=== PATIENT | male | born 1985 | race Caucasian/White ===

== ENCOUNTER 2018-01-23 20:13 | Inpatient (IN) | payer BC, OTHER ==
[2018-01-23] MEDS: PANTOPRAZOLE 40MG INJ (PROTONIX) (C9113) IV ×2 (09:00→22:22)
[2018-01-23] MEDS: NS 1,000 ML IV (22:21)
[2018-01-23] MEDS: ONDANSETRON 4MG/2ML VIAL (J2405) IV (22:25)
[2018-01-23] MEDS: MORPHINE 2 MG/ML 1ML SYRINGE (J2270) IV ×2 (22:25→23:49)
[2018-01-23 22:29] LABS: BASO # 0.1 10^3/uL (0.0-0.2); BASO % 0.6 % (0.0-1.0); EOS # 0.1 10^3/uL (0.0-0.50); EOS % 0.9 % (0.0-3.0); HEMATOCRIT 54.4 % (42.0-52.0); HEMOGLOBIN 19.4 g/dl (14.0-18.0); IMMATURE GRANULOCYTE % 0.4 % (0-3.0); LYMPH # 4.4 10^3/uL (1.5-4.5); LYMPH % 32.5 % (24.0-44.0); MEAN CORPUSCULAR HEMOGLOBIN 29.6 pg (27.0-33.0); MEAN CORPUSCULAR HGB CONC 35.7 g/dl (32.0-36.5); MEAN CORPUSCULAR VOLUME 83.1 fl (80.0-96.0); MONO # 1.6 10^3/uL (0.0-0.8); NEUTROPHILS # 7.2 10^3/uL (1.8-7.7); NEUTROPHILS % 53.6 % (36.0-66.0); PLATELET COUNT, AUTOMATED 372 10^3/uL (150-450); RED BLOOD COUNT 6.55 10^6/uL (4.30-6.10); RED CELL DISTRIBUTION WIDTH 12.3 % (11.5-14.5); WHITE BLOOD COUNT 13.4 10^3/uL (4.0-10.0)
[2018-01-23] MEDS ORDERED: ISOVUE-370 76% 100ML VIAL (Q9967) As Ordered (22:44)
[2018-01-23 22:45] LABS: ALBUMIN 4.6 GM/DL (3.2-5.2); ALBUMIN/GLOBULIN RATIO 1.02 (1.00-1.93); ALKALINE PHOSPHATASE 151 U/L (45-117); ALT/SGPT 104 U/L (12-78); AMYLASE 134 U/L (25-115); ANION GAP 10 MEQ/L (8-16); AST/SGOT 50 U/L (7-37); BILIRUBIN,DIRECT 0.1 MG/DL (0.0-0.2); BILIRUBIN,TOTAL 0.7 MG/DL (0.2-1.0); BLOOD UREA NITROGEN 15 MG/DL (7-18); CARBON DIOXIDE LEVEL 28 MEQ/L (21-32); CHLORIDE LEVEL 98 MEQ/L (98-107); CREATININE FOR GFR 1.04 MG/DL (0.70-1.30); GLOMERULAR FILTRATION RATE > 60.0 (>60); GLUCOSE, FASTING 259 MG/DL (70-100); LIPASE 1409 U/L (73-393); POTASSIUM SERUM 3.2 MEQ/L (3.5-5.1); SODIUM LEVEL 136 MEQ/L (136-145); TOTAL PROTEIN 9.1 GM/DL (6.4-8.2)
[2018-01-23 22:51] LABS: LACTIC ACID SEPSIS PROTOCOL 2.1 MMOL/L (0.4-2.0)
[2018-01-23 23:02] LABS: MAGNESIUM LEVEL 2.4 MG/DL (1.8-2.4)
[2018-01-23] MEDS ORDERED: PANTOPRAZOLE 40MG INJ (PROTONIX) (C9113) IV (23:45)
[2018-01-23] MEDS ORDERED: MORPHINE 4 MG/ML 1ML VIAL (J2270) IV (23:45)
[2018-01-23] MEDS: POTASSIUM CHLORIDE 10 MEQ SR TABLET PO (23:47)
[2018-01-24] MEDS: MORPHINE 2 MG/ML 1ML SYRINGE (J2270) IV (00:24)
[2018-01-24] MEDS: KCL 20MEQ in NS 1000ML 1,000 ML IV ×3 (01:30→08:27)
[2018-01-24] MEDS: KETOROLAC 30 MG/ML VIAL (J1885) IV ×3 (01:55→20:57)
[2018-01-24] MEDS: MORPHINE 4 MG/ML 1ML VIAL (J2270) IV ×5 (02:42→17:42)
[2018-01-24 05:55] LABS: HEMATOCRIT 44.7 % (42.0-52.0); MEAN CORPUSCULAR HEMOGLOBIN 29.8 pg (27.0-33.0); MEAN CORPUSCULAR HGB CONC 35.3 g/dl (32.0-36.5); MEAN CORPUSCULAR VOLUME 84.2 fl (80.0-96.0); PLATELET COUNT, AUTOMATED 254 10^3/uL (150-450); RED BLOOD COUNT 5.31 10^6/uL (4.30-6.10); RED CELL DISTRIBUTION WIDTH 12.3 % (11.5-14.5); WHITE BLOOD COUNT 10.5 10^3/uL (4.0-10.0)
[2018-01-24 06:00] LABS: ADD MANUAL DIFFER YES; DIFF SLIDE NUMBER 93; HEMOGLOBIN 15.8 g/dl (14.0-18.0); POSITIVE DIFF POS FLAG
[2018-01-24 06:14] LABS: ALBUMIN 3.3 GM/DL (3.2-5.2); ALBUMIN/GLOBULIN RATIO 1.03 (1.00-1.93); ALKALINE PHOSPHATASE 100 U/L (45-117); ALT/SGPT 82 U/L (12-78); ANION GAP 8 MEQ/L (8-16); AST/SGOT 47 U/L (7-37); BILIRUBIN,TOTAL 0.6 MG/DL (0.2-1.0); BLOOD UREA NITROGEN 14 MG/DL (7-18); CALCIUM LEVEL 7.8 MG/DL (8.5-10.1); CARBON DIOXIDE LEVEL 26 MEQ/L (21-32); CHLORIDE LEVEL 107 MEQ/L (98-107); CREATININE FOR GFR 0.83 MG/DL (0.70-1.30); GLOMERULAR FILTRATION RATE > 60.0 (>60); GLUCOSE, FASTING 176 MG/DL (70-100); LIPASE 298 U/L (73-393); MAGNESIUM LEVEL 2.1 MG/DL (1.8-2.4); POTASSIUM SERUM 3.9 MEQ/L (3.5-5.1); SODIUM LEVEL 141 MEQ/L (136-145); TOTAL PROTEIN 6.5 GM/DL (6.4-8.2)
[2018-01-24 07:45] LABS: ATYPICAL LYMPH 5 % (0-5); EOSINOPHILS 1 % (0-5); LYMPHOCYTES 36 % (16-52); MONOCYTES 8 % (0-8); NEUTROPHILS 50 % (35-75)
[2018-01-24 07:46] LABS: PLATELET ESTIMATE NORMAL (NORMAL)
[2018-01-24] MEDS: PANTOPRAZOLE 40MG INJ (PROTONIX) (C9113) IV (08:29)
[2018-01-24] MEDS: amLODIPine 10 MG TAB PO (08:29)
[2018-01-24] MEDS: ENOXAPARIN 40 MG/0.4 ML SYRINGE (J1650) SC (08:29)
[2018-01-24] MEDS ORDERED: DEXTROSE 50% 50 ML SYRINGE IV (11:45)
[2018-01-24] MEDS ORDERED: GLUCAGON FOR INJ 1 MG VIAL (J1610) SC (11:45)
[2018-01-24] MEDS ORDERED: GLUCOSE 4 GM CHEW TABLET PO (11:45)
[2018-01-24] MEDS: NS 1,000 ML IV ×2 (12:06→20:56)
[2018-01-24 12:10] LABS: HEPATITIS B SURFACE ANTIGEN NEGATIVE (NEGATIVE)
[2018-01-24 12:31] LABS: CHOLESTEROL LEVEL 172 MG/DL (<200); CHOLESTEROL RISK RATIO 7.818 (<5); HDL CHOLESTEROL 22 MG/DL (>40); NON-HDL-C 150 MG/DL; TRIGLYCERIDES LEVEL 215 MG/DL (<150)
[2018-01-24 12:33] LABS: HEPATITIS C VIRUS ABY INDEX 0.1 INDEX (<0.8)
[2018-01-24 12:33] LABS: HEPATITIS B CORE ANTIBODY IGM NEGATIVE (NEGATIVE)
[2018-01-24 12:34] LABS: HEPATITIS A ANTIBODY IGM NEGATIVE (NEGATIVE)
[2018-01-24] MEDS: HumaLOG INSULIN (NovoLOG) PER UNIT SC ×2 (12:56→17:39)
[2018-01-24 13:02] LABS: BEDSIDE GLUCOSE 233 MG/DL (70-105)
[2018-01-24 13:13] LABS: ESTIMATED AVERAGE GLUCOSE 309 MG/DL (60-110); HEMOGLOBIN A1c 12.4 %
[2018-01-24 17:22] LABS: BEDSIDE GLUCOSE 214 MG/DL (70-105)
[2018-01-24] MEDS: ONDANSETRON 4MG/2ML VIAL (J2405) IV (17:40)
[2018-01-24 21:26] LABS: BEDSIDE GLUCOSE 167 MG/DL (70-105)
[2018-01-25 00:01] LABS: BEDSIDE GLUCOSE 146 MG/DL (70-105)
[2018-01-25] MEDS: HumaLOG INSULIN (NovoLOG) PER UNIT SC ×5 (00:06→20:27)
[2018-01-25] MEDS: MORPHINE 4 MG/ML 1ML VIAL (J2270) IV ×3 (00:09→14:08)
[2018-01-25 05:35] LABS: BASO # 0.1 10^3/uL (0.0-0.2); BASO % 0.7 % (0.0-1.0); EOS # 0.2 10^3/uL (0.0-0.50); EOS % 2.4 % (0.0-3.0); HEMATOCRIT 48.3 % (42.0-52.0); HEMOGLOBIN 17.1 g/dl (14.0-18.0); IMMATURE GRANULOCYTE % 0.3 % (0-3.0); LYMPH # 3.8 10^3/uL (1.5-4.5); LYMPH % 42.6 % (24.0-44.0); MEAN CORPUSCULAR HEMOGLOBIN 29.6 pg (27.0-33.0); MEAN CORPUSCULAR HGB CONC 35.4 g/dl (32.0-36.5); MEAN CORPUSCULAR VOLUME 83.7 fl (80.0-96.0); MONO % 10.6 % (0.0-5.0); NEUTROPHILS # 3.9 10^3/uL (1.8-7.7); NEUTROPHILS % 43.4 % (36.0-66.0); PLATELET COUNT, AUTOMATED 259 10^3/uL (150-450); RED BLOOD COUNT 5.77 10^6/uL (4.30-6.10); RED CELL DISTRIBUTION WIDTH 12.4 % (11.5-14.5); WHITE BLOOD COUNT 8.9 10^3/uL (4.0-10.0)
[2018-01-25] MEDS: NS 1,000 ML IV ×2 (06:12→11:45)
[2018-01-25 06:18] LABS: ALBUMIN 3.4 GM/DL (3.2-5.2); ALBUMIN/GLOBULIN RATIO 0.97 (1.00-1.93); ALKALINE PHOSPHATASE 114 U/L (45-117); ALT/SGPT 103 U/L (12-78); ANION GAP 7 MEQ/L (8-16); AST/SGOT 52 U/L (7-37); BILIRUBIN,TOTAL 0.8 MG/DL (0.2-1.0); BLOOD UREA NITROGEN 9 MG/DL (7-18); CARBON DIOXIDE LEVEL 28 MEQ/L (21-32); CHLORIDE LEVEL 103 MEQ/L (98-107); CREATININE FOR GFR 0.75 MG/DL (0.70-1.30); GLOMERULAR FILTRATION RATE > 60.0 (>60); GLUCOSE, FASTING 160 MG/DL (70-100); LIPASE 421 U/L (73-393); MAGNESIUM LEVEL 2.2 MG/DL (1.8-2.4); POTASSIUM SERUM 3.5 MEQ/L (3.5-5.1); SODIUM LEVEL 138 MEQ/L (136-145); TOTAL PROTEIN 6.9 GM/DL (6.4-8.2)
[2018-01-25 08:03] LABS: BEDSIDE GLUCOSE 151 MG/DL (70-105)
[2018-01-25 08:13] LABS: FERRITIN 461 NG/ML (26-388)
[2018-01-25] MEDS ORDERED: DEXTROSE 50% 50 ML SYRINGE IV (08:45)
[2018-01-25] MEDS ORDERED: GLUCAGON FOR INJ 1 MG VIAL (J1610) SC (08:45)
[2018-01-25] MEDS ORDERED: GLUCOSE 4 GM CHEW TABLET PO (08:45)
[2018-01-25] MEDS: PANTOPRAZOLE 40MG INJ (PROTONIX) (C9113) IV (08:51)
[2018-01-25] MEDS: amLODIPine 10 MG TAB PO (08:52)
[2018-01-25] MEDS: ENOXAPARIN 40 MG/0.4 ML SYRINGE (J1650) SC (08:52)
[2018-01-25] MEDS: PERCOCET 5MG/325MG TAB PO ×2 (08:53→17:22)
[2018-01-25 12:16] LABS: BEDSIDE GLUCOSE 188 MG/DL (70-105)
[2018-01-25 16:52] LABS: BEDSIDE GLUCOSE 207 MG/DL (70-105)
[2018-01-25 20:32] LABS: BEDSIDE GLUCOSE 246 MG/DL (70-105)
[2018-01-26] MEDS: PERCOCET 5MG/325MG TAB PO ×2 (03:58→10:14)
[2018-01-26 06:38] LABS: BASO # 0.1 10^3/uL (0.0-0.2); BASO % 0.7 % (0.0-1.0); EOS # 0.2 10^3/uL (0.0-0.50); EOS % 1.9 % (0.0-3.0); HEMATOCRIT 48.9 % (42.0-52.0); HEMOGLOBIN 17.3 g/dl (14.0-18.0); IMMATURE GRANULOCYTE % 0.3 % (0-3.0); LYMPH # 3.5 10^3/uL (1.5-4.5); LYMPH % 39.6 % (24.0-44.0); MEAN CORPUSCULAR HEMOGLOBIN 29.8 pg (27.0-33.0); MEAN CORPUSCULAR HGB CONC 35.4 g/dl (32.0-36.5); MEAN CORPUSCULAR VOLUME 84.2 fl (80.0-96.0); MONO # 0.8 10^3/uL (0.0-0.8); MONO % 9.3 % (0.0-5.0); NEUTROPHILS # 4.2 10^3/uL (1.8-7.7); NEUTROPHILS % 48.2 % (36.0-66.0); PLATELET COUNT, AUTOMATED 266 10^3/uL (150-450); RED BLOOD COUNT 5.81 10^6/uL (4.30-6.10); RED CELL DISTRIBUTION WIDTH 12.2 % (11.5-14.5); WHITE BLOOD COUNT 8.8 10^3/uL (4.0-10.0)
[2018-01-26 07:00] LABS: ALBUMIN 3.5 GM/DL (3.2-5.2); ALBUMIN/GLOBULIN RATIO 0.95 (1.00-1.93); ALKALINE PHOSPHATASE 124 U/L (45-117); ALT/SGPT 93 U/L (12-78); ANION GAP 5 MEQ/L (8-16); AST/SGOT 33 U/L (7-37); BILIRUBIN,TOTAL 0.7 MG/DL (0.2-1.0); BLOOD UREA NITROGEN 15 MG/DL (7-18); CALCIUM LEVEL 8.8 MG/DL (8.5-10.1); CARBON DIOXIDE LEVEL 31 MEQ/L (21-32); CHLORIDE LEVEL 100 MEQ/L (98-107); CREATININE FOR GFR 0.81 MG/DL (0.70-1.30); GLOMERULAR FILTRATION RATE > 60.0 (>60); GLUCOSE, FASTING 219 MG/DL (70-100); LIPASE 309 U/L (73-393); MAGNESIUM LEVEL 2.5 MG/DL (1.8-2.4); SODIUM LEVEL 136 MEQ/L (136-145); TOTAL PROTEIN 7.2 GM/DL (6.4-8.2)
[2018-01-26] MEDS: HumaLOG INSULIN (NovoLOG) PER UNIT SC (08:52)
[2018-01-26] MEDS: PANTOPRAZOLE 40MG INJ (PROTONIX) (C9113) IV (08:52)
[2018-01-26] MEDS: ENOXAPARIN 40 MG/0.4 ML SYRINGE (J1650) SC (08:54)
[2018-01-26] MEDS: amLODIPine 10 MG TAB PO (08:55)
== END 2018-01-26 11:50 | disposition home or self-care (01) | DRG 282 ==
LOC: M MSPAV 01-24 00:34 → M ED 20:13 → M ED INP 23:35
DX: K85.90 Acute pancreatitis without necrosis or infection, unspecified (principal); E11.65 Type 2 diabetes mellitus with hyperglycemia; K76.0 Fatty (change of) liver, not elsewhere classified; I10 Essential (primary) hypertension; Z91.19 Patient's noncompliance with other medical treatment and regimen; Z88.5 Allergy status to narcotic agent; E87.6 Hypokalemia

== ENCOUNTER → 2018-02-02 | Outpatient (REF) | payer OTHER ==
[2018-02-02 16:17] LABS: ALBUMIN 3.8 GM/DL (3.2-5.2); ALKALINE PHOSPHATASE 144 U/L (45-117); ALT/SGPT 63 U/L (12-78); AST/SGOT 25 U/L (7-37); BILIRUBIN,DIRECT < 0.1 MG/DL (0.0-0.2); BILIRUBIN,TOTAL 0.4 MG/DL (0.2-1.0); FERRITIN 470 NG/ML (26-388); IRON (FE) 154 UG/DL (65-175); TOTAL PROTEIN 7.6 GM/DL (6.4-8.2)
[2018-02-04 08:06] LABS: TRANSFERRIN 282 mg/dL (200-370)
== END ==
LOC: M SFHCPLAZ 12:46
DX: R74.0 Nonspecific elevation of levels of transaminase and lactic acid dehydrogenase [LDH] (principal)

== ENCOUNTER → 2018-02-05 | Outpatient (CLI) | payer BC, OTHER | LOC: M WUC 12:44 | DX: M54.5 Low back pain (principal) | CPT/HCPCS: 72110 ==

== ENCOUNTER → 2018-05-26 | Outpatient (REF) | payer OTHER ==
[2018-05-26 17:25] LABS: HEMATOCRIT 45.9 % (42.0-52.0); MEAN CORPUSCULAR HGB CONC 34.9 g/dl (32.0-36.5); PLATELET COUNT, AUTOMATED 333 10^3/uL (150-450); RED BLOOD COUNT 5.34 10^6/uL (4.30-6.10)
[2018-05-26 17:32] LABS: ALBUMIN 4.5 GM/DL (3.2-5.2); ALBUMIN/GLOBULIN RATIO 1.15 (1.00-1.93); ALKALINE PHOSPHATASE 101 U/L (45-117); ALT/SGPT 40 U/L (12-78); ANION GAP 9 MEQ/L (8-16); AST/SGOT 28 U/L (7-37); BILIRUBIN,TOTAL 0.4 MG/DL (0.2-1.0); BLOOD UREA NITROGEN 19 MG/DL (7-18); CALCIUM LEVEL 9.7 MG/DL (8.5-10.1); CARBON DIOXIDE LEVEL 30 MEQ/L (21-32); CHLORIDE LEVEL 103 MEQ/L (98-107); CREATININE FOR GFR 0.98 MG/DL (0.70-1.30); GLOMERULAR FILTRATION RATE > 60.0 (>60); GLUCOSE, FASTING 118 MG/DL (70-100); POTASSIUM SERUM 3.8 MEQ/L (3.5-5.1); SODIUM LEVEL 142 MEQ/L (136-145); TOTAL PROTEIN 8.4 GM/DL (6.4-8.2)
[2018-05-26 17:36] LABS: ADD MANUAL DIFFER YES; DIFF SLIDE NUMBER 375; POSITIVE DIFF POS FLAG; WHITE BLOOD COUNT 14.3 10^3/uL (4.0-10.0)
[2018-05-26 17:41] LABS: COLLAGEN EPINEPHRINE 158 SECONDS (74-162)
[2018-05-26 17:47] LABS: PARTIAL THROMBOPLASTIN TIME 29.3 SECONDS (25.4-37.6); PROTHROMBIN TIME 13.3 SECONDS (12.1-14.4)
[2018-05-26 21:32] LABS: ATYPICAL LYMPH 1 % (0-5); LYMPHOCYTES 40 % (16-52); MONOCYTES 7 % (0-8); NEUTROPHILS 52 % (35-75)
[2018-05-26 21:34] LABS: PLATELET ESTIMATE NORMAL (NORMAL)
== END ==
LOC: M LABDRAWP 16:58
DX: Z01.818 Encounter for other preprocedural examination (principal)

== ENCOUNTER → 2018-05-27 | Outpatient (CLI) | payer BC, OTHER | LOC: M WUC 11:08 | DX: Z01.818 Encounter for other preprocedural examination (principal); M54.5 Low back pain | CPT/HCPCS: 71046 ==

== ENCOUNTER 2018-05-31 06:33 | Day surgery (SDC) | payer BC, OTHER ==
[2018-05-31] MEDS ORDERED: ROCURONIUM BROMIDE 50 MG/5 ML VIAL As Ordered ×2 (06:46→10:10)
[2018-05-31] MEDS ORDERED: LIDOCAINE 2% INJ 100 MG/5 ML SDV (FOR ANES.) As Ordered (06:46)
[2018-05-31] MEDS ORDERED: PROPOFOL 200 MG/20 ML VIAL As Ordered ×2 (06:46→06:48)
[2018-05-31] MEDS ORDERED: ONDANSETRON 4MG/2ML VIAL (J2405) As Ordered (06:47)
[2018-05-31] MEDS ORDERED: dexameTHASONE 4 MG/ML 1ML VIAL (J1100) As Ordered (06:47)
[2018-05-31] MEDS: LR 1,000 ML IV ×2 (07:23→14:35)
[2018-05-31 07:34] LABS: BEDSIDE GLUCOSE 222 MG/DL (70-105)
[2018-05-31] MEDS ORDERED: MIDAZOLAM INJ 2 MG/2 ML VIAL (J2250) As Ordered (08:08)
[2018-05-31] MEDS ORDERED: fentaNYL 250 MCG/5 ML INJECTION (J3010) As Ordered (08:08)
[2018-05-31] MEDS: BACITRACIN PWD 50,000 UNITS VIAL As Ordered ×3 (10:21→10:24)
[2018-05-31] MEDS: THROMBIN SOLN 20,000 UNITS KIT As Ordered (10:22)
[2018-05-31] MEDS ORDERED: fentaNYL 100 MCG/2 ML INJECTION (J3010) As Ordered (10:39)
[2018-05-31] MEDS ORDERED: HYDROmorphone HCL 2 MG/ML 1ML VIAL (J1170) As Ordered (11:36)
[2018-05-31] MEDS ORDERED: GLYCOPYRROLATE INJ 0.2 MG/ML 2 ML VIAL As Ordered ×2 (11:39)
[2018-05-31] MEDS ORDERED: NEOSTIGMINE 10 MG/10 ML VIAL (J2710) As Ordered (11:39)
[2018-05-31] MEDS: methylPREDNISolone SUSP 40 MG/ML (DEPO-medrol) VIAL (J1030) As Ordered (11:55)
[2018-05-31] MEDS: HYDROMORPHONE HCL 0.5 MG/ 0.5 ML SYRINGE (J1170 PER 1) IV ×6 (12:57→14:35)
[2018-05-31] MEDS ORDERED: ONDANSETRON 4MG/2ML VIAL (J2405) IV ×2 (13:00→14:45)
[2018-05-31] MEDS: PERCOCET 5MG/325MG TAB PO ×3 (13:15→19:02)
[2018-05-31] MEDS: fentaNYL 100 MCG/2 ML INJECTION (J3010) IV ×5 (13:42→14:35)
[2018-05-31] MEDS: LIDOCAINE 1% MDV 20ML VIAL SQ (14:35)
[2018-05-31] MEDS ORDERED: NORCO, ANEXSIA 5/325MG TABLET (HYDROcodone/ACETAMINOPHEN) PO (14:45)
[2018-05-31] MEDS: ceFAZolin SOD 1 GM in D5W MINI-BAG PLUS 50 ML IV ×2 (15:44→22:18)
[2018-05-31] MEDS: KCL 20MEQ IN D5/0.45NS 1000ML 1,000 ML IV ×2 (15:44→23:05)
[2018-05-31] MEDS: ACETAMINOPHEN TAB 650MG DOSE (2X325MG) PO (17:46)
[2018-05-31] MEDS: MORPHINE 4 MG/ML 1ML VIAL/SYRINGE (J2270) IV ×2 (17:46→22:19)
[2018-05-31 18:32] LABS: BEDSIDE GLUCOSE 272 MG/DL (70-105)
[2018-05-31] MEDS: metFORMIN (GLUCOPHAGE) 1000 MG TABLET PO (20:54)
[2018-05-31] MEDS ORDERED: GLUCAGON FOR INJ 1 MG VIAL (J1610) SC (21:30)
[2018-05-31] MEDS ORDERED: DEXTROSE 50% 50 ML SYRINGE IV (21:30)
[2018-05-31] MEDS ORDERED: GLUCOSE 4 GM CHEW TABLET PO (21:30)
[2018-05-31] MEDS: amLODIPine 10 MG TAB PO (22:19)
[2018-05-31] MEDS: HumaLOG INSULIN (NovoLOG) PER UNIT SC (22:30)
[2018-05-31 23:02] LABS: BEDSIDE GLUCOSE 250 MG/DL (70-105)
[2018-06-01] MEDS: PERCOCET 5MG/325MG TAB PO ×3 (00:31→08:41)
[2018-06-01] MEDS: MORPHINE 4 MG/ML 1ML VIAL/SYRINGE (J2270) IV ×3 (02:19→10:57)
[2018-06-01] MEDS: ceFAZolin SOD 1 GM in D5W MINI-BAG PLUS 50 ML IV (04:42)
[2018-06-01] MEDS: KCL 20MEQ IN D5/0.45NS 1000ML 1,000 ML IV (07:25)
[2018-06-01] MEDS: HumaLOG INSULIN (NovoLOG) PER UNIT SC (07:30)
[2018-06-01 08:00] LABS: HEMATOCRIT 39.4 % (42.0-52.0); HEMOGLOBIN 13.8 g/dl (13.5-17.5); MEAN CORPUSCULAR HEMOGLOBIN 30.2 pg (27.0-33.0); MEAN CORPUSCULAR VOLUME 86.2 fl (80.0-96.0); PLATELET COUNT, AUTOMATED 241 10^3/uL (150-450); RED BLOOD COUNT 4.57 10^6/uL (4.30-6.10); RED CELL DISTRIBUTION WIDTH 11.9 % (11.5-14.5); WHITE BLOOD COUNT 16.6 10^3/uL (4.0-10.0)
[2018-06-01] MEDS: metFORMIN (GLUCOPHAGE) 1000 MG TABLET PO (08:00)
[2018-06-01 08:23] LABS: ALBUMIN 3.3 GM/DL (3.2-5.2); ALBUMIN/GLOBULIN RATIO 0.94 (1.00-1.93); ALKALINE PHOSPHATASE 85 U/L (45-117); ALT/SGPT 30 U/L (12-78); ANION GAP 11 MEQ/L (8-16); AST/SGOT 17 U/L (7-37); BILIRUBIN,TOTAL 0.3 MG/DL (0.2-1.0); BLOOD UREA NITROGEN 9 MG/DL (7-18); CALCIUM LEVEL 8.2 MG/DL (8.5-10.1); CARBON DIOXIDE LEVEL 26 MEQ/L (21-32); CHLORIDE LEVEL 102 MEQ/L (98-107); CREATININE FOR GFR 0.82 MG/DL (0.70-1.30); GLOMERULAR FILTRATION RATE > 60.0 (>60); GLUCOSE, FASTING 243 MG/DL (70-100); MAGNESIUM LEVEL 2.2 MG/DL (1.8-2.4); POTASSIUM SERUM 4.1 MEQ/L (3.5-5.1); SODIUM LEVEL 139 MEQ/L (136-145); TOTAL PROTEIN 6.8 GM/DL (6.4-8.2)
[2018-06-01] MEDS: LOSARTAN 50 MG TAB PO (08:39)
[2018-06-01] MEDS: amLODIPine 10 MG TAB PO (08:39)
[2018-06-01] MEDS: glipiZIDE (GLUCOTROL) 5 MG TAB PO (08:40)
[2018-06-01] MEDS: SENNA 8.6 MG TAB (SENOKOT) PO (09:00)
[2018-06-01 09:10] LABS: ESTIMATED AVERAGE GLUCOSE 177 MG/DL (60-110); HEMOGLOBIN A1c 7.8 %
[2018-06-01 11:22] LABS: BEDSIDE GLUCOSE 304 MG/DL (70-105)
== END 2018-06-01 12:15 | disposition home or self-care (01) ==
LOC: M SDC 06:33 → M PED 14:20
DX: M47.16 Other spondylosis with myelopathy, lumbar region (principal); M47.26 Other spondylosis with radiculopathy, lumbar region; M46.1 Sacroiliitis, not elsewhere classified; M48.062 Spinal stenosis, lumbar region with neurogenic claudication; M54.32 Sciatica, left side; I10 Essential (primary) hypertension; E11.65 Type 2 diabetes mellitus with hyperglycemia; K76.0 Fatty (change of) liver, not elsewhere classified; Q80.9 Congenital ichthyosis, unspecified; Z88.5 Allergy status to narcotic agent; Z88.8 Allergy status to other drugs, medicaments and biological substances; Z79.899 Other long term (current) drug therapy; Z79.84 Long term (current) use of oral hypoglycemic drugs; Z87.442 Personal history of urinary calculi; Z87.19 Personal history of other diseases of the digestive system
CPT/HCPCS: 63030

== ENCOUNTER → 2018-06-16 | Outpatient (REF) | payer OTHER ==
[2018-06-16 12:48] LABS: ALBUMIN 3.9 GM/DL (3.2-5.2); ALBUMIN/GLOBULIN RATIO 1.08 (1.00-1.93); ALKALINE PHOSPHATASE 104 U/L (45-117); ALT/SGPT 47 U/L (12-78); AST/SGOT 25 U/L (7-37); BILIRUBIN,DIRECT < 0.1 MG/DL (0.0-0.2); BILIRUBIN,TOTAL 0.4 MG/DL (0.2-1.0); FERRITIN 378 NG/ML (26-388); IRON (FE) 104 UG/DL (65-175); PERCENT SATURATION 26.5 % (19.7-50.0); TOTAL IRON BINDING CAPACITY 393 UG/DL (250-450); TOTAL PROTEIN 7.5 GM/DL (6.4-8.2)
[2018-06-16 13:28] LABS: ESTIMATED AVERAGE GLUCOSE 180 MG/DL (60-110); HEMOGLOBIN A1c 7.9 %
[2018-06-16 16:16] LABS: MAU/CREAT RATIO 41.6 MCG/MG (0.0-30.0)
[2018-06-17 08:13] LABS: TRANSFERRIN 317 mg/dL (200-370)
== END ==
LOC: M SFHCPLAZ 08:06
DX: R74.0 Nonspecific elevation of levels of transaminase and lactic acid dehydrogenase [LDH] (principal); E11.65 Type 2 diabetes mellitus with hyperglycemia

== ENCOUNTER → 2018-07-29 | Outpatient (CLI) | payer BC, OTHER | LOC: M WUC 15:03 | DX: M96.1 Postlaminectomy syndrome, not elsewhere classified (principal) | CPT/HCPCS: 72100 ==

== ENCOUNTER → 2018-08-01 | Outpatient (CLI) | payer BC, OTHER ==
[2018-08-01 20:03] LABS: CREATININE FOR GFR 1.09 MG/DL (0.70-1.30); GLOMERULAR FILTRATION RATE > 60.0 (>60)
[2018-08-01 20:03] LABS: BLOOD UREA NITROGEN 14 MG/DL (7-18)
== END ==
LOC: M WUC 17:11
DX: Z01.818 Encounter for other preprocedural examination (principal)
CPT/HCPCS: 82565

== ENCOUNTER → 2018-12-12 | Outpatient (REF) | payer BC ==
[~2018-12-12] MED LIST: AMLO10TA5 PO; CYCL10TA; D-CA1KIT XX; GABA-843; GLIP5TAB20; HYDR-3713; LOSA100T50; METF10004 PO; OMEP40CA2 PO; OXYC1TAB23 PO; PERC7.5T11 PO
[2018-12-12 12:23] LABS: HEMOGLOBIN A1c 11.7 %
[2018-12-12 12:32] LABS: CREATININE, URINE 98.1 MG/DL; MALB URINE SIEMENS 41.4 MG/L; MAU/CREAT RATIO 42.2 MCG/MG (0.0-30.0)
[2018-12-12 12:52] LABS: BLOOD UREA NITROGEN 14 MG/DL (7-18); CARBON DIOXIDE LEVEL 29 MEQ/L (21-32); CHLORIDE LEVEL 97 MEQ/L (98-107); CREATININE FOR GFR 0.77 MG/DL (0.70-1.30); GLOMERULAR FILTRATION RATE > 60.0 (>60); GLUCOSE, FASTING 347 MG/DL (70-100); POTASSIUM SERUM 5.1 MEQ/L (3.5-5.1); SODIUM LEVEL 134 MEQ/L (136-145)
== END ==
LOC: M SFHCPLAZ 09:23
PROVIDERS: ATTEND Family Medicine
DX: E11.65 Type 2 diabetes mellitus with hyperglycemia (principal)

== ENCOUNTER → 2018-12-15 | Outpatient (REF) | payer BC | LOC: M SFHCPLAZ 10:14 | PROVIDERS: ATTEND Family Medicine | DX: I10 Essential (primary) hypertension (principal) ==

== ENCOUNTER 2019-01-18 11:32 | Emergency (ER) | payer BC, OTHER ==
[~2019-01-18] VITALS: Ht 180.3 cm; Wt 90.9 kg
[2019-01-18] MEDS ORDERED: PREG50CA (11:52)
[2019-01-18] MEDS ORDERED: MORPHINE 4 MG/ML 1ML VIAL/SYRINGE (J2270) IV ONE (12:00)
[2019-01-18] MEDS ORDERED: NS 1,000 ML IV ONE (12:00)
[2019-01-18] MEDS ORDERED: ONDANSETRON 4MG/2ML VIAL (J2405) IV ONE (12:00)
[2019-01-18 12:22] LABS: BASO % 0.3 % (0.0-1.0); EOS % 0.2 % (0.0-3.0); HEMATOCRIT 45.1 % (42.0-52.0); HEMOGLOBIN 16.2 g/dl (13.5-17.5); LYMPH # 1.9 10^3/uL (1.5-4.5); LYMPH % 15.7 % (24.0-44.0); MEAN CORPUSCULAR HEMOGLOBIN 29.4 pg (27.0-33.0); MEAN CORPUSCULAR HGB CONC 35.9 g/dl (32.0-36.5); MEAN CORPUSCULAR VOLUME 81.9 fl (80.0-96.0); MONO # 0.4 10^3/uL (0.0-0.8); MONO % 3.7 % (0.0-5.0); NEUTROPHILS # 9.4 10^3/uL (1.8-7.7); NEUTROPHILS % 79.7 % (36.0-66.0); PLATELET COUNT, AUTOMATED 288 10^3/uL (150-450); RED BLOOD COUNT 5.51 10^6/uL (4.30-6.10); WHITE BLOOD COUNT 11.9 10^3/uL (4.0-10.0)
[2019-01-18 12:55] LABS: ALBUMIN 3.9 GM/DL (3.2-5.2); ALT/SGPT 70 U/L (12-78); AMYLASE 43 U/L (25-115); BILIRUBIN,DIRECT 0.1 MG/DL (0.0-0.2); BILIRUBIN,TOTAL 0.7 MG/DL (0.2-1.0); BLOOD UREA NITROGEN 23 MG/DL (7-18); CALCIUM LEVEL 8.6 MG/DL (8.5-10.1); CARBON DIOXIDE LEVEL 25 MEQ/L (21-32); CHLORIDE LEVEL 97 MEQ/L (98-107); CREATININE FOR GFR 0.85 MG/DL (0.70-1.30); GLOMERULAR FILTRATION RATE > 60.0 (>60); GLUCOSE, FASTING 309 MG/DL (70-100); LIPASE 220 U/L (73-393); POTASSIUM SERUM 3.2 MEQ/L (3.5-5.1); SODIUM LEVEL 134 MEQ/L (136-145); TOTAL PROTEIN 7.6 GM/DL (6.4-8.2)
[2019-01-18] MEDS ORDERED: METOCLOPRAMIDE INJ 10MG/2ML VIAL (J2765) IV ONE (13:15)
[2019-01-18] MEDS ORDERED: ISOVUE-370 76% 100ML VIAL (Q9967) As Ordered ONE (13:23)
[2019-01-18] MEDS ORDERED: KETOROLAC 30 MG/ML VIAL (J1885) IV ONE (13:45)
[2019-01-18] MEDS ORDERED: ONDA8TAB8 PO (14:53)
[2019-01-18] MEDS ORDERED: HumuLIN R (REGULAR) INSULIN (NovoLIN R) **100U/ML** PER UNIT IV ONE (15:00)
[2019-01-18 15:02] VITALS: BP 150/98
[2019-01-18] MEDS ORDERED: DICY20TA11 PO (15:03)
--- NOTE | 2019-01-18 15:18 | REP ---
CT ABDOMEN AND PELVIS WITH IV CONTRAST: TECHNIQUE: Axial contrast enhanced images from the lung bases to the pubic symphysis using 100 mL Isovue 370 intravenous contrast material with multiplanar reformations. The visualized lung bases are clear. There appears to be fatty infiltration of the liver. Otherwise liver demonstrates no mass. Gallbladder is grossly unremarkable. Spleen, adrenals, pancreas and kidneys are unremarkable. There is no abdominal aortic aneurysm. There is no adenopathy. There is no free air or free fluid. No bowel wall thickening is seen. There is no evidence of appendicitis. There is no pelvic mass. Urinary bladder is unremarkable. IMPRESSION: No acute abnormality is detected. No evidence of appendicitis, free air, or free fluid. No bowel wall inflammation. There appears to be fatty infiltration of the liver. Electronically Signed by Jeff Hernandez MD 01/18/2019 11:37 P
== END 2019-01-18 15:13 | disposition home or self-care (01) ==
LOC: M ED 11:32
DX: R10.9 Unspecified abdominal pain (principal); R11.2 Nausea with vomiting, unspecified; R19.7 Diarrhea, unspecified; Z79.899 Other long term (current) drug therapy; Z88.5 Allergy status to narcotic agent
CPT/HCPCS: 74177; 80048; 80076; 81001; 82150; 83690; 85025; 96361; 96374; 96375; 99284; J1885; J2270; J2405; J2765; Q9967

== ENCOUNTER → 2020-10-15 | Outpatient (REF) | payer BC ==
[~2020-10-15] MED LIST changes: -AMLO10TA5 PO; +AMLO1TAB25 PO; +CYCL-707; -CYCL10TA; +DICY20TA11 PO; -OMEP40CA2 PO; +OMEP40CA97 PO; +ONDA8TAB8 PO; +PREG50CA
[2020-10-15 18:06] LABS: HEMOGLOBIN A1c 12.1 %
[2020-10-15 18:23] LABS: BLOOD UREA NITROGEN 21 MG/DL (7-18); CALCIUM LEVEL 9.3 MG/DL (8.5-10.1); CARBON DIOXIDE LEVEL 31 MEQ/L (21-32); CHLORIDE LEVEL 99 MEQ/L (98-107); CHOLESTEROL LEVEL 153 MG/DL (<200); CREATININE FOR GFR 0.93 MG/DL (0.70-1.30); GLOMERULAR FILTRATION RATE > 60.0 (>60); GLUCOSE, FASTING 300 MG/DL (70-100); HDL CHOLESTEROL 34 MG/DL (>40); LDL CHOLESTEROL 65 MG/DL (<100); NON-HDL-C 119 MG/DL; POTASSIUM SERUM 4.5 MEQ/L (3.5-5.1); SODIUM LEVEL 136 MEQ/L (136-145); TRIGLYCERIDES LEVEL 272 MG/DL (<150)
[2020-10-15 18:49] LABS: CREATININE, URINE 76.8 MG/DL; MAU/CREAT RATIO 179.6 MCG/MG (0.0-30.0)
== END ==
LOC: M SFHCPLAZ 14:56
PROVIDERS: ATTEND Family Medicine
DX: E11.65 Type 2 diabetes mellitus with hyperglycemia (principal)

== ENCOUNTER → 2021-08-14 | Outpatient (CLI) | payer BC, OTHER ==
[~2021-08-14] MED LIST changes: +GABA-282; -GABA-843; +OMEP40CA4 PO; -OMEP40CA97 PO
[2021-08-14 15:39] LABS: HEMATOCRIT 50.6 % (42.0-52.0); HEMOGLOBIN 17.6 g/dl (13.5-17.5); MEAN CORPUSCULAR HEMOGLOBIN 30.3 pg (27.0-33.0); MEAN CORPUSCULAR HGB CONC 34.8 g/dl (32.0-36.5); MEAN CORPUSCULAR VOLUME 87.1 fl (80.0-96.0); PLATELET COUNT, AUTOMATED 257 10^3/uL (150-450); RED BLOOD COUNT 5.81 10^6/uL (4.30-6.10); WHITE BLOOD COUNT 9.4 10^3/uL (4.0-10.0)
[2021-08-14 15:54] LABS: HEMOGLOBIN A1c 12.2 %
[2021-08-14 16:28] LABS: BLOOD UREA NITROGEN 23 MG/DL (7-18); CALCIUM LEVEL 9.3 MG/DL (8.5-10.1); CARBON DIOXIDE LEVEL 30 MEQ/L (21-32); CHLORIDE LEVEL 96 MEQ/L (98-107); CREATININE FOR GFR 1.26 MG/DL (0.70-1.30); GLOMERULAR FILTRATION RATE > 60.0 (>60); GLUCOSE, FASTING 471 MG/DL (70-100); POTASSIUM SERUM 4.9 MEQ/L (3.5-5.1); SODIUM LEVEL 135 MEQ/L (136-145)
--- NOTE | 2021-08-15 05:52 | REP ---
INDICATION: TYPE 2 DIABETES COMPARISON: 05/27/2018 TECHNIQUE: Portable AP view of the chest FINDINGS: The mediastinum and cardiac silhouette are stable and within normal limits for portable technique. The lung nettles are clear without acute consolidation, effusion, or pneumothorax. Skeletal structures are intact. IMPRESSION: No acute cardiopulmonary process appreciated. <Electronically signed by Francisco J Kingsley > 08/15/21 0549
== END ==
LOC: M PLALAB 12:35
PROVIDERS: ATTEND Family Medicine
DX: E11.65 Type 2 diabetes mellitus with hyperglycemia (principal)

== ENCOUNTER → 2021-08-22 | Outpatient (CLI) | payer BC ==
[2021-08-22 16:40] LABS: BLOOD UREA NITROGEN 19 MG/DL (7-18); CALCIUM LEVEL 8.7 MG/DL (8.5-10.1); CARBON DIOXIDE LEVEL 28 MEQ/L (21-32); CHLORIDE LEVEL 101 MEQ/L (98-107); CHOLESTEROL LEVEL 160 MG/DL (<200); CHOLESTEROL RISK RATIO 5.161 (<5); CREATININE FOR GFR 0.88 MG/DL (0.70-1.30); GLOMERULAR FILTRATION RATE > 60.0 (>60); GLUCOSE, FASTING 292 MG/DL (70-100); HDL CHOLESTEROL 31 MG/DL (>40); LDL CHOLESTEROL 80 MG/DL (<100); NON-HDL-C 129 MG/DL; POTASSIUM SERUM 4.3 MEQ/L (3.5-5.1); SODIUM LEVEL 136 MEQ/L (136-145); TRIGLYCERIDES LEVEL 246 MG/DL (<150)
== END ==
LOC: M PLALAB 13:52
PROVIDERS: ATTEND Physician Assistant
DX: E11.65 Type 2 diabetes mellitus with hyperglycemia (principal)

== ENCOUNTER → 2021-08-22 | Outpatient (REF) | payer BC | LOC: M SFHCPLAZ 13:46 | DX: E11.65 Type 2 diabetes mellitus with hyperglycemia (principal); Z53.9 Procedure and treatment not carried out, unspecified reason ==

== ENCOUNTER → 2021-11-27 | Outpatient (REF) | payer OTHER ==
[~2021-11-27] MED LIST changes: -DICY20TA11 PO; +DICY20TA20 PO; +LOSA100T45; -LOSA100T50
== END ==
LOC: M SFHCPLAZ 10:07
PROVIDERS: ATTEND Family Medicine
DX: R09.89 Other specified symptoms and signs involving the circulatory and respiratory systems (principal); E11.65 Type 2 diabetes mellitus with hyperglycemia; D75.1 Secondary polycythemia

== ENCOUNTER → 2021-11-27 | Outpatient (REF) | payer OTHER | LOC: M SFHCPLAZ 12:57 | PROVIDERS: ATTEND Family Medicine | DX: R09.89 Other specified symptoms and signs involving the circulatory and respiratory systems (principal) ==

== ENCOUNTER → 2022-03-23 | Outpatient (CLI) | payer OTHER ==
[2022-03-23 15:44] LABS: ALBUMIN 3.8 GM/DL (3.2-5.2); ALT/SGPT 45 U/L (12-78); BILIRUBIN,TOTAL 0.6 MG/DL (0.2-1.0); BLOOD UREA NITROGEN 17 MG/DL (7-18); CARBON DIOXIDE LEVEL 29 MEQ/L (21-32); CHLORIDE LEVEL 105 MEQ/L (98-107); CREATININE FOR GFR 0.88 MG/DL (0.70-1.30); FERRITIN 119 NG/ML (26-388); GLOMERULAR FILTRATION RATE > 60.0 (>60); GLUCOSE, FASTING 158 MG/DL (70-100); IRON (FE) 102 UG/DL (65-175); PERCENT SATURATION 26.8 % (19.7-50.0); POTASSIUM SERUM 4.2 MEQ/L (3.5-5.1); SODIUM LEVEL 137 MEQ/L (136-145); TOTAL IRON BINDING CAPACITY 380 UG/DL (250-450)
== END ==
LOC: M PLALAB 13:46
PROVIDERS: ATTEND Family Medicine
DX: E11.65 Type 2 diabetes mellitus with hyperglycemia (principal)

== ENCOUNTER → 2022-03-23 | Outpatient (REF) | payer OTHER | LOC: M SFHCPLAZ 13:36 | PROVIDERS: ATTEND Family Medicine | DX: Z53.9 Procedure and treatment not carried out, unspecified reason (principal) ==